=== PATIENT | female | born 1960 | race Caucasian/White ===

== ENCOUNTER 2018-06-27 09:24 | Inpatient (IN) | payer MEDICAID ==
[~2018-06-27] VITALS: Ht 167.6 cm; Wt 83.0 kg
[~2018-06-27 09:24] MED LIST: ABIL10 MT; APIX2.5T MT; FURO-152 MT; HYDR12.529 MT; METO-385 MT
[2018-06-27] MEDS ORDERED: METHYLPREDNISOLONE SOD SUCC 125 MG/2 ML VIAL IV STA (09:37)
[2018-06-27] MEDS ORDERED: IPRATROPIUM BROMIDE (0.02%) 0.5MG/2.5ML NEB HHN STA (09:37)
[2018-06-27] MEDS ORDERED: ALBUTEROL (0.083%) 2.5MG/3ML NEB HHN STA (09:37)
[2018-06-27 10:08] LABS: BASOPHILS % 0.4 % (0.0-2.0); EOSINOPHILS % 0.2 % (0.0-5.0); HEMATOCRIT. 40.3 % (36.0-48.0); HEMOGLOBIN. 13.5 g/dL (12.0-16.0); LYMPHOCYTES % 10.1 % (20.0-50.0); MEAN CORPUSCULAR HEMOGLOBIN 31.4 pg (28.0-32.0); MONOCYTES % 9.5 % (2.0-8.0); NEUTROPHILS % 79.8 % (40.0-76.0); PLATELET 213 x1000/uL (130-400); RED BLOOD CELL COUNT 4.29 mill/uL (4.2-5.4)
[2018-06-27 10:13] LABS: CHLORIDE 107 mEq/L (98-107)
[2018-06-27] MEDS ORDERED: IPRATROPIUM/ALBUTEROL 0.5-3(2.5)MG/3ML NEB HHN PRN (13:00)
[2018-06-27] MEDS ORDERED: METHYLPREDNISOLONE SOD SUCC 40 MG/ML VIAL IV NR (15:15)
[2018-06-27] MEDS ORDERED: ONDANSETRON HCL 4MG/2ML INJ IV PRN (16:45)
[2018-06-27] MEDS ORDERED: CLONIDINE 0.1MG TABLET PO PRN (16:45)
[2018-06-27 17:21] LABS: PHOSPHORUS 2.6 mg/dL (2.5-4.9)
[2018-06-27 18:18] LABS: CLARITY URINE CLEAR (CLEAR); COLOR URINE YELLOW (YELLOW); KETONES URINE NEGATIVE (NEGATIVE); LEUKOCYTE ESTERASE URINE NEGATIVE (NEGATIVE); NITRITE URINE NEGATIVE (NEGATIVE); OCCULT BLOOD URINE NEGATIVE (NEGATIVE); PH URINE 6.5 (4.5-8.0); PROTEIN URINE NEGATIVE (NEGATIVE); UROBILINOGEN URINE 0.2 E.U./dL (0.2-1.0)
[2018-06-27 18:37] LABS: *COCAINE SCREEN URINE NEGATIVE (NEGATIVE); METHADONE URINE SCREEN NEGATIVE (NEGATIVE); OPIATES URINE SCREEN NEGATIVE (NEGATIVE)
[2018-06-27 18:38] LABS: *AMPHETAMINES SCREEN URINE NEGATIVE (NEGATIVE); *BARBITURATES SCREEN URINE NEGATIVE (NEGATIVE); *BENZODIAZEPINES SCREEN URINE NEGATIVE (NEGATIVE); CANNABINOID URINE SCREEN NEGATIVE (NEGATIVE); PHENCYCLIDINE URINE SCREEN NEGATIVE (NEGATIVE)
[2018-06-27 20:15] VITALS: BP 125/59
[2018-06-27 20:30] VITALS: BP 125/59
[2018-06-27 21:00] VITALS: BP 125/59
[2018-06-27] MEDS: METHYLPREDNISOLONE SOD SUCC 40 MG/ML VIAL IV SCH (21:29)
[2018-06-27] MEDS: METOPROLOL TARTRATE 25MG TABLET PO SCH (21:30)
[2018-06-27] MEDS: APIXABAN 2.5 MG TABLET PO SCH (21:30)
[2018-06-27] MEDS: IPRATROPIUM/ALBUTEROL 0.5-3(2.5)MG/3ML NEB HHN SCH (22:16)
[2018-06-28] VITALS: BP 106/53
[2018-06-28] MEDS: IPRATROPIUM/ALBUTEROL 0.5-3(2.5)MG/3ML NEB HHN SCH ×5 (03:30→21:00)
[2018-06-28 05:00] VITALS: BP 107/50
[2018-06-28] MEDS: METHYLPREDNISOLONE SOD SUCC 40 MG/ML VIAL IV SCH ×2 (05:56→16:09)
[2018-06-28 06:21] LABS: HEMATOCRIT. 39.8 % (36.0-48.0); HEMOGLOBIN. 13.5 g/dL (12.0-16.0); MEAN CORPUSCULAR HEMOGLOBIN 31.9 pg (28.0-32.0); MEAN CORPUSCULAR VOLUME 94.4 fL (81.0-99.0); MEAN PLATELET VOLUME 8.3 fl (7.4-10.4); PLATELET 220 x1000/uL (130-400); RED BLOOD CELL COUNT 4.22 mill/uL (4.2-5.4); RED CELL DISTRIBUTION WIDTH 15.1 % (11.6-14.6)
[2018-06-28 06:30] LABS: CHLORIDE 106 mEq/L (98-107)
[2018-06-28 08:00] VITALS: BP 111/54
[2018-06-28] MEDS: METOPROLOL TARTRATE 25MG TABLET PO SCH ×2 (09:08→21:00)
[2018-06-28] MEDS: APIXABAN 2.5 MG TABLET PO SCH ×2 (09:08→21:37)
[2018-06-28] MEDS: HYDROCHLOROTHIAZIDE 12.5MG CAPSULE PO SCH (09:09)
[2018-06-28 10:39] LABS: PLATELET ESTIMATE NORMAL
[2018-06-28] MEDS ORDERED: AZITHROMYCIN 500 MG TABLET PO NR (11:30)
[2018-06-28 12:00] VITALS: BP 130/52
[2018-06-28] MEDS: ACETAMINOPHEN 325MG TABLET PO PRN (12:30)
[2018-06-28 20:00] VITALS: BP 105/50
[2018-06-28] MEDS: GUAIFENESIN 600MG ER TABLET PO SCH (21:37)
[2018-06-28] MEDS: LORAZEPAM 0.5MG TABLET PO PRN (21:40)
[2018-06-29] VITALS: BP 110/54
[2018-06-29] MEDS: IPRATROPIUM/ALBUTEROL 0.5-3(2.5)MG/3ML NEB HHN SCH ×6 (00:23→20:55)
[2018-06-29 04:00] VITALS: BP 108/60
[2018-06-29 05:52] LABS: HEMATOCRIT. 40.8 % (36.0-48.0); HEMOGLOBIN. 13.6 g/dL (12.0-16.0); MEAN CORPUSCULAR HEMOGLOBIN 31.5 pg (28.0-32.0); MEAN CORPUSCULAR VOLUME 94.6 fL (81.0-99.0); MEAN PLATELET VOLUME 8.2 fl (7.4-10.4); PLATELET 207 x1000/uL (130-400); RED BLOOD CELL COUNT 4.31 mill/uL (4.2-5.4); RED CELL DISTRIBUTION WIDTH 15.2 % (11.6-14.6)
[2018-06-29 06:32] LABS: CHLORIDE 106 mEq/L (98-107)
[2018-06-29 08:00] VITALS: BP 103/46
[2018-06-29] MEDS: METHYLPREDNISOLONE SOD SUCC 40 MG/ML VIAL IV SCH ×2 (08:53→17:54)
[2018-06-29] MEDS: AZITHROMYCIN 250 MG TABLET PO SCH (08:53)
[2018-06-29] MEDS: HYDROCHLOROTHIAZIDE 12.5MG CAPSULE PO SCH (08:53)
[2018-06-29] MEDS: GUAIFENESIN 600MG ER TABLET PO SCH ×2 (08:53→21:09)
[2018-06-29] MEDS: APIXABAN 2.5 MG TABLET PO SCH ×2 (08:53→21:09)
[2018-06-29] MEDS: METOPROLOL TARTRATE 25MG TABLET PO SCH ×2 (09:00→21:00)
[2018-06-29] MEDS: ACETAMINOPHEN 325MG TABLET PO PRN (09:05)
[2018-06-29 12:00] VITALS: BP 125/55
[2018-06-29 16:00] VITALS: BP 103/63
[2018-06-29 20:00] VITALS: BP 105/45
[2018-06-29] MEDS: LORAZEPAM 0.5MG TABLET PO PRN (21:10)
[2018-06-30] VITALS (7 sets, daily range): BP systolic 103–115; BP diastolic 38–60
[2018-06-30] MEDS: IPRATROPIUM/ALBUTEROL 0.5-3(2.5)MG/3ML NEB HHN SCH ×6 (00:28→20:17)
[2018-06-30 06:15] LABS: PLATELET ESTIMATE NORMAL
[2018-06-30 06:36] LABS: BASOPHILS % 0.1 % (0.0-2.0); CHLORIDE 102 mEq/L (98-107); HEMATOCRIT. 41.5 % (36.0-48.0); HEMOGLOBIN. 13.9 g/dL (12.0-16.0); LYMPHOCYTES % 9.1 % (20.0-50.0); MEAN CORPUSCULAR HEMOGLOBIN 31.7 pg (28.0-32.0); MEAN CORPUSCULAR VOLUME 94.7 fL (81.0-99.0); MEAN PLATELET VOLUME 8.4 fl (7.4-10.4); NEUTROPHILS % 83.8 % (40.0-76.0); PLATELET 210 x1000/uL (130-400); RED BLOOD CELL COUNT 4.38 mill/uL (4.2-5.4); RED CELL DISTRIBUTION WIDTH 14.5 % (11.6-14.6)
[2018-06-30] MEDS ORDERED: TERBUTALINE SULFATE 1MG/ML VIAL SUBCUT SCH (09:15)
[2018-06-30] MEDS: HYDROCHLOROTHIAZIDE 12.5MG CAPSULE PO SCH (09:43)
[2018-06-30] MEDS: AZITHROMYCIN 250 MG TABLET PO SCH (09:44)
[2018-06-30] MEDS: DOCUSATE SODIUM 100MG CAPSULE PO PRN (09:44)
[2018-06-30] MEDS: APIXABAN 2.5 MG TABLET PO SCH ×2 (09:44→21:36)
[2018-06-30] MEDS: METOPROLOL TARTRATE 25MG TABLET PO SCH ×2 (09:44→21:34)
[2018-06-30] MEDS: METHYLPREDNISOLONE SOD SUCC 125 MG/2 ML VIAL IV SCH ×2 (11:43→19:16)
[2018-06-30] MEDS: THEOPHYLLINE ANHYDROUS 80 MG/15 ML 120ML PO SCH ×3 (11:47→23:16)
[2018-06-30] MEDS: ACETAMINOPHEN 325MG TABLET PO PRN (11:50)
[2018-06-30] MEDS ORDERED: MAGNESIUM/ALUMINUM HYDROXIDE/SIMETHICONE 30ML UDC PO PRN (21:00)
[2018-06-30] MEDS: LORAZEPAM 0.5MG TABLET PO PRN (21:34)
[2018-06-30] MEDS: PANTOPRAZOLE 40MG DR TABLET PO SCH (21:34)
[2018-07-01] VITALS: BP 114/55
[2018-07-01] MEDS: IPRATROPIUM/ALBUTEROL 0.5-3(2.5)MG/3ML NEB HHN SCH ×5 (00:07→15:59)
[2018-07-01] MEDS: METHYLPREDNISOLONE SOD SUCC 125 MG/2 ML VIAL IV SCH ×2 (01:58→10:07)
[2018-07-01 04:00] VITALS: BP 118/60
[2018-07-01] MEDS: THEOPHYLLINE ANHYDROUS 80 MG/15 ML 120ML PO SCH (05:46)
[2018-07-01 08:00] VITALS: BP 131/63
[2018-07-01] MEDS: APIXABAN 2.5 MG TABLET PO SCH (09:11)
[2018-07-01] MEDS: METOPROLOL TARTRATE 25MG TABLET PO SCH (09:12)
[2018-07-01] MEDS: AZITHROMYCIN 250 MG TABLET PO SCH (09:12)
[2018-07-01] MEDS: HYDROCHLOROTHIAZIDE 12.5MG CAPSULE PO SCH (09:12)
[2018-07-01] MEDS: PANTOPRAZOLE 40MG DR TABLET PO SCH (09:12)
[2018-07-01] MEDS: DOCUSATE SODIUM 100MG CAPSULE PO PRN (09:12)
[2018-07-01] MEDS ORDERED: TERBUTALINE SULFATE 1MG/ML VIAL SUBCUT NR (11:30)
[2018-07-01 12:00] VITALS: BP 108/59
[2018-07-01 13:07] LABS: QFT MITOGEN VALUE 1.69 IU/mL (.); QFT TB GOLD PLUS Negative (Negative); QFT TB1 AG VALUE 0.09 IU/mL (.)
[2018-07-01 15:19] VITALS: BP 108/59
[2018-07-02] MEDS ORDERED: FAMOTIDINE 20MG TABLET PO SCH (09:00)
== END 2018-07-01 16:29 | disposition home or self-care (01) | DRG 133 ==
LOC: ER 09:24 → 7WST 12:08 → EDBEDREQ 12:13 → EDBEDREQTM 12:13 → ENRESERV 19:34
PROVIDERS: ADMIT Internal Medicine; ATTEND Internal Medicine
DX: J96.00 Acute respiratory failure, unspecified whether with hypoxia or hypercapnia (principal); J18.9 Pneumonia, unspecified organism; I48.91 Unspecified atrial fibrillation; J44.0 Chronic obstructive pulmonary disease with (acute) lower respiratory infection; J44.1 Chronic obstructive pulmonary disease with (acute) exacerbation; D64.9 Anemia, unspecified; I10 Essential (primary) hypertension; F31.9 Bipolar disorder, unspecified; I25.2 Old myocardial infarction; Z79.01 Long term (current) use of anticoagulants; Z86.73 Personal history of transient ischemic attack (TIA), and cerebral infarction without residual deficits; Z90.49 Acquired absence of other specified parts of digestive tract; Z98.51 Tubal ligation status; Z88.5 Allergy status to narcotic agent
CPT/HCPCS: 36415; 71045; 80048; 80061; 80305; 83036; 83520; 83735; 83880; 84100; 84484; 85379; 86480; 93005; 94640; 96374; 96375; 99285; J2920; J2930; J3105; J7611; J7620

== ENCOUNTER 2019-01-03 09:28 | Emergency (ER) | payer MEDICAID ==
[~2019-01-03] VITALS: Ht 165.1 cm; Wt 77.0 kg
[2019-01-03] MEDS ORDERED: ASPIRIN 81MG TABLET PO ONE (09:45)
[2019-01-03] MEDS ORDERED: NITROGLYCERIN 0.4MG TABLET SL SL PRN (09:45)
[2019-01-03 09:56] LABS: BASOPHILS % 0.9 % (0.0-2.0); EOSINOPHILS % 1.8 % (0.0-5.0); HEMATOCRIT. 44.7 % (36.0-48.0); HEMOGLOBIN. 15.4 g/dL (12.0-16.0); LYMPHOCYTES % 21.9 % (20.0-50.0); MEAN CORPUSCULAR HEMOGLOBIN 32.1 pg (28.0-32.0); MEAN CORPUSCULAR VOLUME 93.4 fL (81.0-99.0); MEAN PLATELET VOLUME 8.7 fl (7.4-10.4); MONOCYTES % 8.2 % (2.0-8.0); NEUTROPHILS % 67.2 % (40.0-76.0); PLATELET 239 x1000/uL (130-400); RED BLOOD CELL COUNT 4.79 mill/uL (4.2-5.4); RED CELL DISTRIBUTION WIDTH 14.8 % (11.6-14.6)
[2019-01-03 10:02] LABS: CHLORIDE 106 mEq/L (98-107)
[2019-01-03 10:06] LABS: ETHANOL BLOOD < 10 mg/dL
[2019-01-03 10:32] LABS: *AMPHETAMINES SCREEN URINE NEGATIVE (NEGATIVE); *BARBITURATES SCREEN URINE NEGATIVE (NEGATIVE); *BENZODIAZEPINES SCREEN URINE NEGATIVE (NEGATIVE); *COCAINE SCREEN URINE NEGATIVE (NEGATIVE); CANNABINOID URINE SCREEN NEGATIVE (NEGATIVE); METHADONE URINE SCREEN NEGATIVE (NEGATIVE); OPIATES URINE SCREEN NEGATIVE (NEGATIVE); PHENCYCLIDINE URINE SCREEN NEGATIVE (NEGATIVE)
[2019-01-03] MEDS ORDERED: IPRATROPIUM BROMIDE (0.02%) 0.5MG/2.5ML NEB HHN STA (11:01)
[2019-01-03] MEDS ORDERED: ALBUTEROL (0.083%) 2.5MG/3ML NEB HHN STA (11:01)
[2019-01-03] MEDS ORDERED: DEXAMETHASONE 10 MG/ML VIAL IV ONE (11:30)
[2019-01-03 15:15] VITALS: BP 110/61
== END 2019-01-03 15:20 | disposition home or self-care (01) ==
LOC: ER 09:28
DX: R07.9 Chest pain, unspecified (principal); I25.10 Atherosclerotic heart disease of native coronary artery without angina pectoris; J44.9 Chronic obstructive pulmonary disease, unspecified; F41.9 Anxiety disorder, unspecified; R20.2 Paresthesia of skin; I25.2 Old myocardial infarction; F31.9 Bipolar disorder, unspecified; I48.91 Unspecified atrial fibrillation; Z88.5 Allergy status to narcotic agent; Z79.899 Other long term (current) drug therapy
CPT/HCPCS: 36415; 71045; 80053; 80305; 80320; 83880; 84484; 85025; 93005; 94640; 96374; 99284; J1100; J7611; Z7610; G0480

== ENCOUNTER 2019-03-26 02:39 | Inpatient (IN) | payer MEDICAID ==
[~2019-03-26] VITALS: Ht 199.4 cm; Wt 85.3 kg
[2019-03-26] MEDS ORDERED: ALBUTEROL (0.083%) 2.5MG/3ML NEB HHN STA ×3 (03:04→07:54)
[2019-03-26] MEDS ORDERED: IPRATROPIUM BROMIDE (0.02%) 0.5MG/2.5ML NEB HHN STA ×2 (03:04→04:28)
[2019-03-26] MEDS ORDERED: METHYLPREDNISOLONE SOD SUCC 125 MG/2 ML VIAL IV STA (03:04)
[2019-03-26] MEDS ORDERED: MAGNESIUM 2 G PREMIX 50 ML IV STA (03:04)
[2019-03-26 03:39] LABS: HEMATOCRIT 41.8 % (36.0-48.0); HEMOGLOBIN 14.6 g/dL (12.0-16.0); MEAN CORPUSCULAR HEMOGLOBIN 32.6 pg (28.0-32.0); MEAN CORPUSCULAR VOLUME 93.7 fL (81.0-99.0); PLATELET 215 x1000/uL (130-400); RED BLOOD CELL COUNT 4.46 mill/uL (4.2-5.4); RED CELL DISTRIBUTION WIDTH 13.3 % (11.6-14.6)
[2019-03-26 03:43] LABS: CHLORIDE 110 mEq/L (98-107)
[2019-03-26] MEDS ORDERED: POTASSIUM CHLORIDE INJ 40 MEQ in DEXT 5% WATER 250 ML IV SCH (06:00)
[2019-03-26] MEDS ORDERED: ALBUTEROL (0.083%) 2.5MG/3ML NEB HHN SCH ×2 (07:43→12:00)
[2019-03-26] MEDS ORDERED: ALBUTEROL (0.5%) 2.5MG/0.5ML NEB HHN ONE (08:07)
[2019-03-26 09:20] VITALS: BP 117/56
[2019-03-26] MEDS ORDERED: CLONIDINE 0.1MG TABLET PO PRN (10:15)
[2019-03-26] MEDS ORDERED: DOCUSATE SODIUM 100MG CAPSULE PO PRN (10:15)
[2019-03-26] MEDS ORDERED: IPRATROPIUM/ALBUTEROL 0.5-3(2.5)MG/3ML NEB NEB PRN (10:15)
[2019-03-26] MEDS ORDERED: ALBU18HF2 IH (10:19)
[2019-03-26] MEDS ORDERED: WARF2.5T83 PO (10:19)
[2019-03-26] MEDS: ENOXAPARIN 40MG/0.4ML SYR SUBCUT SCH (10:28)
[2019-03-26 12:00] VITALS: BP 103/43
[2019-03-26] MEDS: IPRATROPIUM/ALBUTEROL 0.5-3(2.5)MG/3ML NEB HHN SCH ×3 (12:08→21:51)
[2019-03-26] MEDS: AZITHROMYCIN 500 MG in DEXT 5% WATER 250 ML IV SCH (13:42)
[2019-03-26 16:00] VITALS: BP 106/63
[2019-03-26] MEDS ORDERED: METHYLPREDNISOLONE SOD SUCC 40 MG/ML VIAL IV SCH (16:00)
[2019-03-26] MEDS: NICOTINE 14MG PATCH TD SCH (16:46)
[2019-03-26 20:00] VITALS: BP 115/50
[2019-03-26] MEDS: ZOLPIDEM TARTRATE 5MG TABLET PO PRN (21:10)
[2019-03-26] MEDS: GUAIFENESIN 600MG ER TABLET PO SCH (21:10)
[2019-03-26] MEDS: METHYLPREDNISOLONE SOD SUCC 125 MG/2 ML VIAL IV SCH (22:02)
[2019-03-27] VITALS: BP 94/50
[2019-03-27] MEDS: IPRATROPIUM/ALBUTEROL 0.5-3(2.5)MG/3ML NEB HHN SCH ×6 (01:16→20:53)
[2019-03-27 04:00] VITALS: BP 103/46
[2019-03-27] MEDS: METHYLPREDNISOLONE SOD SUCC 125 MG/2 ML VIAL IV SCH ×4 (05:29→23:18)
[2019-03-27 06:32] LABS: HEMATOCRIT. 39.9 % (36.0-48.0); HEMOGLOBIN. 13.3 g/dL (12.0-16.0); MEAN CORPUSCULAR HEMOGLOBIN 31.4 pg (28.0-32.0); MEAN PLATELET VOLUME 9.4 fl (7.4-10.4); PLATELET 229 x1000/uL (130-400); RED BLOOD CELL COUNT 4.25 mill/uL (4.2-5.4); RED CELL DISTRIBUTION WIDTH 13.4 % (11.6-14.6)
[2019-03-27 07:22] LABS: CHLORIDE 110 mEq/L (98-107)
[2019-03-27 07:42] LABS: PHOSPHORUS 2.8 mg/dL (2.5-4.9)
[2019-03-27 07:43] LABS: LDL CHOLESTEROL 80 mg/dL (5-100)
[2019-03-27 07:45] LABS: HDL CHOLESTEROL 57 mg/dL (40-59)
[2019-03-27 08:00] VITALS: BP 109/41
[2019-03-27] MEDS: GUAIFENESIN 600MG ER TABLET PO SCH ×2 (08:46→20:31)
[2019-03-27] MEDS: NICOTINE 14MG PATCH TD SCH (08:47)
[2019-03-27] MEDS: ENOXAPARIN 40MG/0.4ML SYR SUBCUT SCH (08:48)
[2019-03-27 09:08] LABS: BG BASE EXCESS -0.6 mmol/L (-2.0-2.0); BG CARBOXYHEMOGLOBIN 0.6 % (0.5-1.5); BG FRACTION INSPIRED OXYGEN 32; BG HCO3 ACT 24.4 mmol/L (22.0-26.0); BG METHEMOGLOBIN 0.1 % (0.0-1.5); BG OXYHEMOGLOBIN 94.3 % (94.0-97.0); BG PCO2 41.4 mmHg (35.0-45.0); BG PH 7.388 (7.350-7.450); BG PO2 73.6 mmHg (75.0-100.0); BG SAMPLE SITE RIGHT RADIAL; BG TOTAL HEMOGLOBIN 14.9 g/dL (12.0-18.0); BG VENT MODE NASAL CANNULA
[2019-03-27 12:00] VITALS: BP 105/57
[2019-03-27] MEDS: AZITHROMYCIN 500 MG in DEXT 5% WATER 250 ML IV SCH (12:32)
[2019-03-27] MEDS: ACETAMINOPHEN 325MG TABLET PO PRN ×2 (13:01→20:32)
[2019-03-27 13:33] LABS: PLATELET ESTIMATE NORMAL
[2019-03-27 16:00] VITALS: BP 117/54
[2019-03-27] MEDS: THEOPHYLLINE ANHYDROUS 80 MG/15 ML 120ML PO SCH ×2 (19:00→23:18)
[2019-03-27 20:21] VITALS: BP 110/54
[2019-03-27] MEDS: BENZONATATE 100MG CAPSULE PO SCH (20:32)
[2019-03-27] MEDS: ZOLPIDEM TARTRATE 5MG TABLET PO PRN (23:18)
[2019-03-28 00:11] VITALS: BP 101/57
[2019-03-28] MEDS: IPRATROPIUM/ALBUTEROL 0.5-3(2.5)MG/3ML NEB HHN SCH ×7 (00:35→23:57)
[2019-03-28 04:00] VITALS: BP 106/62
[2019-03-28] MEDS: METHYLPREDNISOLONE SOD SUCC 125 MG/2 ML VIAL IV SCH ×3 (05:34→21:45)
[2019-03-28] MEDS: BENZONATATE 100MG CAPSULE PO SCH ×3 (05:39→21:46)
[2019-03-28] MEDS: THEOPHYLLINE ANHYDROUS 80 MG/15 ML 120ML PO SCH ×4 (06:00→17:39)
[2019-03-28 06:11] LABS: HEMATOCRIT. 41.7 % (36.0-48.0); HEMOGLOBIN. 13.7 g/dL (12.0-16.0); MEAN CORPUSCULAR HEMOGLOBIN 31.2 pg (28.0-32.0); MEAN CORPUSCULAR VOLUME 94.9 fL (81.0-99.0); MEAN PLATELET VOLUME 9.1 fl (7.4-10.4); PLATELET 240 x1000/uL (130-400); RED BLOOD CELL COUNT 4.39 mill/uL (4.2-5.4); RED CELL DISTRIBUTION WIDTH 13.7 % (11.6-14.6)
[2019-03-28 06:45] LABS: CHLORIDE 110 mEq/L (98-107)
[2019-03-28 08:00] VITALS: BP 103/55
[2019-03-28] MEDS: ENOXAPARIN 40MG/0.4ML SYR SUBCUT SCH (09:09)
[2019-03-28] MEDS: NICOTINE 14MG PATCH TD SCH (09:09)
[2019-03-28] MEDS: GUAIFENESIN 600MG ER TABLET PO SCH ×2 (09:09→21:45)
[2019-03-28] MEDS ORDERED: TERBUTALINE SULFATE 1MG/ML VIAL SUBCUT SCH (11:00)
[2019-03-28 12:00] VITALS: BP 104/39
[2019-03-28] MEDS: AZITHROMYCIN 500 MG in DEXT 5% WATER 250 ML IV SCH (12:09)
[2019-03-28 12:19] LABS: BG BASE EXCESS 2.6 mmol/L (-2.0-2.0); BG CARBOXYHEMOGLOBIN 0.6 % (0.5-1.5); BG DEOXYHEMOGLOBIN 7.8 % (0.0-5.0); BG FRACTION INSPIRED OXYGEN 21; BG HCO3 ACT 27.1 mmol/L (22.0-26.0); BG METHEMOGLOBIN 0.2 % (0.0-1.5); BG OXYGEN SATURATION 92.1 % (92.0-98.5); BG OXYHEMOGLOBIN 91.4 % (94.0-97.0); BG PCO2 41.6 mmHg (35.0-45.0); BG PH 7.432 (7.350-7.450); BG PO2 59.4 mmHg (75.0-100.0); BG SAMPLE SITE LEFT RADIAL; BG TOTAL HEMOGLOBIN 14.2 g/dL (12.0-18.0); BG VENT MODE ROOM AIR
[2019-03-28 14:34] LABS: PLATELET ESTIMATE NORMAL
[2019-03-28] MEDS: ACETAMINOPHEN 325MG TABLET PO PRN (16:17)
[2019-03-28 16:23] VITALS: BP 142/99
[2019-03-28] MEDS: ONDANSETRON HCL 4MG/2ML INJ IV PRN (17:43)
[2019-03-28 20:00] VITALS: BP 103/56
[2019-03-29] VITALS: BP 167/59
[2019-03-29] MEDS: THEOPHYLLINE ANHYDROUS 80 MG/15 ML 120ML PO SCH ×4 (00:18→17:33)
[2019-03-29] MEDS: ZOLPIDEM TARTRATE 5MG TABLET PO PRN ×2 (00:41→21:04)
[2019-03-29 04:00] VITALS: BP 100/59
[2019-03-29] MEDS: IPRATROPIUM/ALBUTEROL 0.5-3(2.5)MG/3ML NEB HHN SCH ×5 (04:04→20:19)
[2019-03-29] MEDS: METHYLPREDNISOLONE SOD SUCC 125 MG/2 ML VIAL IV SCH ×3 (06:00→22:15)
[2019-03-29] MEDS: BENZONATATE 100MG CAPSULE PO SCH ×3 (06:35→22:15)
[2019-03-29 08:00] VITALS: BP 134/74
[2019-03-29] MEDS: ENOXAPARIN 40MG/0.4ML SYR SUBCUT SCH (10:23)
[2019-03-29] MEDS: GUAIFENESIN 600MG ER TABLET PO SCH ×2 (10:24→21:04)
[2019-03-29] MEDS: NICOTINE 14MG PATCH TD SCH (10:27)
[2019-03-29 12:00] VITALS: BP 108/53
[2019-03-29] MEDS: AZITHROMYCIN 500 MG in DEXT 5% WATER 250 ML IV SCH (14:23)
[2019-03-29] MEDS ORDERED: TERBUTALINE SULFATE 1MG/ML VIAL SUBCUT NR (14:30)
[2019-03-29] MEDS: ACETYLCYSTEINE 100MG/ML 10% VIAL 4ML INH SCH (15:50)
[2019-03-29 16:00] VITALS: BP 123/65
[2019-03-29 20:00] VITALS: BP 110/65
[2019-03-30] VITALS: BP 102/57
[2019-03-30] MEDS: ACETYLCYSTEINE 100MG/ML 10% VIAL 4ML INH SCH ×3 (00:08→16:39)
[2019-03-30] MEDS: IPRATROPIUM/ALBUTEROL 0.5-3(2.5)MG/3ML NEB HHN SCH ×6 (00:09→21:57)
[2019-03-30] MEDS: THEOPHYLLINE ANHYDROUS 80 MG/15 ML 120ML PO SCH ×6 (00:20→18:29)
[2019-03-30 04:00] VITALS: BP 120/62
[2019-03-30] MEDS: METHYLPREDNISOLONE SOD SUCC 125 MG/2 ML VIAL IV SCH ×3 (05:52→21:37)
[2019-03-30] MEDS: BENZONATATE 100MG CAPSULE PO SCH ×3 (05:54→21:37)
[2019-03-30 08:00] VITALS: BP 126/65
[2019-03-30] MEDS: GUAIFENESIN 600MG ER TABLET PO SCH ×2 (09:00→21:37)
[2019-03-30] MEDS: NICOTINE 14MG PATCH TD SCH (09:21)
[2019-03-30] MEDS: ENOXAPARIN 40MG/0.4ML SYR SUBCUT SCH (09:21)
[2019-03-30] MEDS: ONDANSETRON HCL 4MG/2ML INJ IV PRN (11:59)
[2019-03-30] MEDS: ACETAMINOPHEN 325MG TABLET PO PRN (11:59)
[2019-03-30 12:00] VITALS: BP 125/67
[2019-03-30] MEDS ORDERED: BENZ-16 MT (13:39)
[2019-03-30] MEDS ORDERED: GUAI600T26 MT (13:39)
[2019-03-30] MEDS ORDERED: IPRA3AMP9 NEB (13:39)
[2019-03-30] MEDS ORDERED: P20 MT (13:39)
[2019-03-30 16:00] VITALS: BP 129/64
[2019-03-30] MEDS: AZITHROMYCIN 500 MG in DEXT 5% WATER 250 ML IV SCH (18:27)
[2019-03-30 20:00] VITALS: BP 126/55
[2019-03-30] MEDS: ZOLPIDEM TARTRATE 5MG TABLET PO PRN (21:37)
[2019-03-30] MEDS: MAGNESIUM/ALUMINUM HYDROXIDE/SIMETHICONE 30ML UDC PO PRN (21:39)
[2019-03-31] VITALS: BP 110/53
[2019-03-31] MEDS: THEOPHYLLINE ANHYDROUS 80 MG/15 ML 120ML PO SCH ×4 (00:19→18:16)
[2019-03-31] MEDS: IPRATROPIUM/ALBUTEROL 0.5-3(2.5)MG/3ML NEB HHN SCH ×7 (01:15→20:57)
[2019-03-31 04:00] VITALS: BP 116/54
[2019-03-31] MEDS: ACETYLCYSTEINE 100MG/ML 10% VIAL 4ML INH SCH ×2 (05:01→07:51)
[2019-03-31] MEDS: BENZONATATE 100MG CAPSULE PO SCH ×3 (05:33→22:02)
[2019-03-31] MEDS: METHYLPREDNISOLONE SOD SUCC 125 MG/2 ML VIAL IV SCH ×3 (05:33→22:14)
[2019-03-31 08:00] VITALS: BP 122/68
[2019-03-31] MEDS: GUAIFENESIN 600MG ER TABLET PO SCH ×2 (08:42→22:02)
[2019-03-31] MEDS: ENOXAPARIN 40MG/0.4ML SYR SUBCUT SCH (08:42)
[2019-03-31] MEDS: NICOTINE 14MG PATCH TD SCH (08:42)
[2019-03-31] MEDS: MAGNESIUM/ALUMINUM HYDROXIDE/SIMETHICONE 30ML UDC PO PRN ×3 (09:03→22:02)
[2019-03-31 12:00] VITALS: BP 125/68
[2019-03-31] MEDS: AZITHROMYCIN 500 MG in DEXT 5% WATER 250 ML IV SCH (13:12)
[2019-03-31 16:00] VITALS: BP 107/68
[2019-03-31] MEDS: ONDANSETRON HCL 4MG/2ML INJ IV PRN (20:56)
[2019-03-31] MEDS: ACETAMINOPHEN 325MG TABLET PO PRN (22:03)
[2019-04-01] VITALS: BP 134/68
[2019-04-01] MEDS: IPRATROPIUM/ALBUTEROL 0.5-3(2.5)MG/3ML NEB HHN SCH ×6 (01:04→20:58)
[2019-04-01 04:00] VITALS: BP 140/72
[2019-04-01] MEDS: BENZONATATE 100MG CAPSULE PO SCH ×3 (05:53→21:24)
[2019-04-01] MEDS: MAGNESIUM/ALUMINUM HYDROXIDE/SIMETHICONE 30ML UDC PO PRN ×3 (05:53→21:23)
[2019-04-01] MEDS: THEOPHYLLINE ANHYDROUS 80 MG/15 ML 120ML PO SCH ×4 (05:53→17:13)
[2019-04-01] MEDS: METHYLPREDNISOLONE SOD SUCC 125 MG/2 ML VIAL IV SCH ×3 (06:05→21:11)
[2019-04-01 07:46] VITALS: BP 127/65
[2019-04-01] MEDS: GUAIFENESIN 600MG ER TABLET PO SCH ×2 (08:50→21:23)
[2019-04-01] MEDS: ENOXAPARIN 40MG/0.4ML SYR SUBCUT SCH (08:51)
[2019-04-01] MEDS: NICOTINE 14MG PATCH TD SCH (08:58)
[2019-04-01 12:00] VITALS: BP 134/69
[2019-04-01] MEDS: AZITHROMYCIN 500 MG in DEXT 5% WATER 250 ML IV SCH (12:11)
[2019-04-01 16:32] VITALS: BP 110/58
[2019-04-01 20:00] VITALS: BP 114/64
[2019-04-01] MEDS: ONDANSETRON HCL 4MG/2ML INJ IV PRN (21:11)
[2019-04-02] VITALS: BP 118/52
[2019-04-02] MEDS: IPRATROPIUM/ALBUTEROL 0.5-3(2.5)MG/3ML NEB HHN SCH ×5 (00:31→15:37)
[2019-04-02 04:00] VITALS: BP 113/64
[2019-04-02] MEDS: ONDANSETRON HCL 4MG/2ML INJ IV PRN (04:50)
[2019-04-02] MEDS: THEOPHYLLINE ANHYDROUS 80 MG/15 ML 120ML PO SCH ×3 (05:40→12:00)
[2019-04-02] MEDS: MAGNESIUM/ALUMINUM HYDROXIDE/SIMETHICONE 30ML UDC PO PRN (05:40)
[2019-04-02] MEDS: METHYLPREDNISOLONE SOD SUCC 125 MG/2 ML VIAL IV SCH ×2 (05:40→13:46)
[2019-04-02] MEDS: BENZONATATE 100MG CAPSULE PO SCH ×2 (06:00→08:42)
[2019-04-02 08:00] VITALS: BP 140/80
[2019-04-02] MEDS: GUAIFENESIN 600MG ER TABLET PO SCH (08:41)
[2019-04-02] MEDS: ENOXAPARIN 40MG/0.4ML SYR SUBCUT SCH (08:42)
[2019-04-02] MEDS: NICOTINE 14MG PATCH TD SCH (08:43)
[2019-04-02] MEDS: AZITHROMYCIN 500 MG in DEXT 5% WATER 250 ML IV SCH (11:51)
[2019-04-02 12:00] VITALS: BP 102/46
[2019-04-02 14:02] VITALS: BP 102/76
== END 2019-04-02 16:13 | disposition home or self-care (01) | DRG 140 ==
LOC: ER 02:39 → ENRESERV 08:07 → 7WST 09:34
PROVIDERS: ADMIT Internal Medicine; ATTEND Internal Medicine
DX: J44.1 Chronic obstructive pulmonary disease with (acute) exacerbation (principal); J96.01 Acute respiratory failure with hypoxia; I48.91 Unspecified atrial fibrillation; I10 Essential (primary) hypertension; E87.6 Hypokalemia; D64.9 Anemia, unspecified; N28.89 Other specified disorders of kidney and ureter; I25.10 Atherosclerotic heart disease of native coronary artery without angina pectoris; F17.210 Nicotine dependence, cigarettes, uncomplicated; J06.9 Acute upper respiratory infection, unspecified; Z88.8 Allergy status to other drugs, medicaments and biological substances; Z79.01 Long term (current) use of anticoagulants; Z86.73 Personal history of transient ischemic attack (TIA), and cerebral infarction without residual deficits; I25.2 Old myocardial infarction; Z90.89 Acquired absence of other organs; Z98.51 Tubal ligation status; Z79.899 Other long term (current) drug therapy
CPT/HCPCS: 36415; 36600; 71045; 80048; 80061; 82375; 82805; 83735; 84100; 84443; 84484; 85027; 87070; 93306; 93970; 94618; 94644; 96365; 97162; 97165; 99285; C1893; J0456; J1650; J2405; J2920; J2930; J3105; J3475; J3480; J7060; J7608; J7611; J7620